=== PATIENT | male | born 1970 | race Caucasian/White ===

== ENCOUNTER 2016-12-26 15:24 | Observation (INO) | payer OTHER ==
[~2016-12-26] VITALS: Ht 167.6 cm; Wt 64.2 kg
[2016-12-26 17:13] LABS: ABNORMAL IP MESSAGE 1; BASOPHILS % 0.7 % (0.0-2.0); EOSINOPHILS # 0.3 10^3/ul (0.0-0.5); EOSINOPHILS % 6.7 % (0.0-7.0); HEMATOCRIT 36.7 % (42.0-52.0); HEMOGLOBIN 12.7 g/dl (14.0-18.0); LYMPHOCYTES # 1.6 10^3/ul (0.8-2.9); LYMPHOCYTES % 37.9 % (15.0-51.0); MEAN CORPUSCULAR HEMOGLOBIN 31.4 pg (29.0-33.0); MEAN CORPUSCULAR HGB CONC 34.6 g/dl (32.0-37.0); MEAN CORPUSCULAR VOLUME 90.8 fl (82.0-101.0); MEAN PLATELET VOLUME 10.1 fl (7.4-10.4); MONOCYTE # 0.3 10^3/ul (0.3-0.9); MONOCYTES % 6.3 % (0.0-11.0); NEUTROPHILS % 47.9 % (39.0-77.0); PLATELET COUNT 57 10^3/UL (140-415); POSITIVE DIFF @See below; RED BLOOD COUNT 4.04 10^6/ul (4.70-6.10); RED CELL DISTRIBUTION WIDTH 14.4 % (11.5-14.5); WHITE BLOOD COUNT 4.3 10^3/ul (4.8-10.8)
[2016-12-26 17:30] LABS: INR 1.3; PARTIAL THROMBOPLASTIN TIME 33.4 Sec (25.0-35.0); PROTIME 16.3 Sec (12.2-14.2); PT RATIO 1.3
[2016-12-26 17:35] LABS: ALANINE AMINOTRANSFERASE 42 IU/L (13-69); ALBUMIN 3.5 g/dl (3.3-4.9); ALBUMIN/GLOBULIN RATIO 0.76; ALKALINE PHOSPHATASE 253 IU/L (42-121); ANION GAP 22 (8-16); ASPARTATE AMINO TRANSFERASE 78 IU/L (15-46); BLOOD UREA NITROGEN 2 mg/dl (7-20); CALCIUM 8.5 mg/dl (8.4-10.2); CARBON DIOXIDE 25 mmol/L (21-31); CHLORIDE 99 mmol/L (97-110); CREATININE 0.46 mg/dl (0.61-1.24); GLUCOSE 365 mg/dl (70-220); POTASSIUM 3.8 mmol/L (3.5-5.1); SODIUM 142 mmol/L (135-144); TOTAL PROTEIN 8.1 g/dl (6.1-8.1)
[2016-12-26 17:36] LABS: ACETAMINOPHEN < 10.0 ug/ml (10.0-30.0); SALICYLATE < 1.0 mg/dl (5.0-30.0)
[2016-12-26 17:45] LABS: TROPONIN-I < 0.012 ng/ml (0.00-0.12)
--- NOTE | 2016-12-26 18:16 | RADRPT ---
PROCEDURE: Noncontrast CT Head. CLINICAL INDICATION: Medical clearance. TECHNIQUE: Noncontrast CT of the head was obtained. The administered radiation dose was CTDI vol = 43.22 mGy, DLP = 855.42 mGy-cm. One or more of the following dose reduction techniques were used: Au tomated exposure control, Adjustment of the mA and/or kV according to patient size, or Use of iterat luciana reconstruction technique. COMPARISON: There are no similar studies submitted for comparison. FINDINGS: There is minimal generalized cerebral volume loss. There is no loss of jones-white differentiation to suggest acute territorial infarction. There is no acute intracranial hemorrhage. There is no mass effect. No midline shift is identified. The orbits are within normal limits. There is minimal bilateral ethmoid sinus mucosal thickening. No destructive osseous lesion is identified. IMPRESSION: 1. No acute intracranial hemorrhage. 2. Minimal generalized cerebral volume loss. Further findings as detailed above. RPTAT: PP .Fernando Yee MD, MD Date Time Electronically viewed and signed by .Fernando Yee MD, on 12/26/2016 18:15 .F/
[2016-12-26 19:09] LABS: ADD UMIC YES; UR ASCORBIC ACID NEGATIVE (NEGATIVE); UR BILIRUBIN (Dip) NEGATIVE (NEGATIVE); UR BLOOD (Dip) 1+ mg/dL (NEGATIVE); UR CLARITY CLEAR (CLEAR); UR COLOR YELLOW (YELLOW); UR GLUCOSE (Dip) 3+ mg/dL (NEGATIVE); UR KETONES (Dip) TRACE mg/dL (NEGATIVE); UR LEUKOCYTE ESTERASE (Dip) TRACE Leu/ul (NEGATIVE); UR NITRITE (Dip) NEGATIVE (NEGATIVE); UR RBC 2 /HPF (0-5); UR SPECIFIC GRAVITY (Dip) 1.033 (1.003-1.030); UR TOTAL PROTEIN (Dip) NEGATIVE (NEGATIVE); UR UROBILINOGEN (Dip) NEGATIVE (NEGATIVE)
[2016-12-26 19:25] LABS: BARBITURATES Negative (NEGATIVE); BENZODIAZEPINES Negative (NEGATIVE); CANNABINOIDS Negative (NEGATIVE); COCAINE Negative (NEGATIVE); OPIATES Negative (NEGATIVE)
--- NOTE | 2016-12-26 19:37 | ERA ---
ER Documentation Chief Complaint Date/Time DATE: 12/26/16 TIME: 19:33 Chief Complaint BIB BROTHER FOR ETOH INTOXICATION AND WEAKNESS HPI This is a 46-year-old male with a history of alcohol abuse who is presenting after being brought in by his brother for both alcohol intoxication and weakness. Over the last 2 weeks, the patient has had generalized weakness. He has been slower to respond to questions and is typical. He seems a little bit more confused than is his baseline. According to his brother, he is also had full days of amnesia, and it is unclear if it is related to alcohol or something else. The patient has not fallen. He has not had any trauma. He has not been lightheaded or dizzy. He just feels weak and fatigued and not quite himself. The patient denies feeling sick. He has had no cold or flulike symptoms. He has had no fever or chills. He does endorse intermittent nausea but no vomiting. He denies any chest pain, but he does state that he has been told he has some sort of heart issue. He does not know what this issue is. Patient denies any abdominal pain. He denies changes to bowel movements urination. The patient does have lower extremity swelling, but this is been long-standing and unchanged. ROS All systems reviewed and are negative except as per history of present illness. Medications Home Meds No Active Prescriptions or Reported Meds Allergies Allergies: Coded Allergies: No Known Allergy (Unverified , 12/26/16) PMhx/Soc Medical and Surgical Hx: pt denies Medical Hx, pt denies Surgical Hx Hx Miscellaneous Medical Probl: Yes (Lower extremity swelling) Hx Alcohol Use: Yes (HEAVILY EVERYDAY) Hx Substance Use: No Hx Tobacco Use: No Smoking Status: Never smoker FmHx Family History: diabetes Physical Exam Vitals Vital Signs Date Time Temp Pulse Resp B/P Pulse Ox O2 Delivery O2 Flow Rate FiO2 12/26/16 15:35 98.1 97 20 109/67 100 Physical Exam Const: NAD Head: Atraumatic Eyes: Mild scleral icterus ENT: Normal External Ears, Nose and Mouth. Neck: Full range of motion..~ No meningismus. Resp: Clear to auscultation bilaterally Cardio: Regular rate and rhythm, no murmurs Abd: Soft, non tender. distended. Normal bowel sounds Skin: No petechiae or rashes Back: No midline or flank tenderness Ext: No cyanosis, or edema Neur: Awake and alert, oriented x 3, slow to respond to questions, normal strength and sensation Psych: slow slurred speech Result Diagram: 12/26/16 1648 12/26/16 1648 Results 24 hrs Laboratory Tests Test 12/26/16 16:48 12/26/16 18:00 12/26/16 19:15 White Blood Count 4.310^3/ul Red Blood Count 4.0410^6/ul Hemoglobin 12.7g/dl Hematocrit 36.7% Mean Corpuscular Volume 90.8fl Mean Corpuscular Hemoglobin 31.4pg Mean Corpuscular Hemoglobin Concent 34.6g/dl Red Cell Distribution Width 14.4% Platelet Count 5710^3/UL Mean Platelet Volume 10.1fl Neutrophils % 47.9% Lymphocytes % 37.9% Monocytes % 6.3% Eosinophils % 6.7% Basophils % 0.7% Nucleated Red Blood Cells % 0.0/100WBC Neutrophils # (Manual) 2.110^3/ul Lymphocytes # 1.610^3/ul Monocytes # 0.310^3/ul Eosinophils # 0.310^3/ul Basophils # 0.010^3/ul Nucleated Red Blood Cells # 0.010^3/ul Prothrombin Time 16.3Sec Prothrombin Time Ratio 1.3 INR International Normalized Ratio 1.30 Activated Partial Thromboplast Time 33.4Sec Sodium Level 142mmol/L Potassium Level 3.8mmol/L Chloride Level 99mmol/L Carbon Dioxide Level 25mmol/L Anion Gap 22 Blood Urea Nitrogen 2mg/dl Creatinine 0.46mg/dl Glucose Level 365mg/dl Calcium Level 8.5mg/dl Total Bilirubin 1.0mg/dl Direct Bilirubin 0.00mg/dl Indirect Bilirubin 1.0mg/dl Aspartate Amino Transf (AST/SGOT) 78IU/L Alanine Aminotransferase (ALT/SGPT) 42IU/L Alkaline Phosphatase 253IU/L Troponin I < 0.012ng/ml Total Protein 8.1g/dl Albumin 3.5g/dl Globulin 4.60g/dl Albumin/Globulin Ratio 0.76 Lipase 63U/L Salicylates Level < 1.0mg/dl Acetaminophen Level < 10.0ug/ml Ethyl Alcohol Level 339.0mg/dl Urine Color YELLOW Urine Clarity CLEAR Urine pH 6.0 Urine Specific [place] 1.033 Urine Ketones TRACEmg/dL Urine Nitrite NEGATIVEmg/dL Urine Bilirubin NEGATIVEmg/dL Urine Urobilinogen NEGATIVEmg/dL Urine Leukocyte Esterase TRACELeu/ul Urine Microscopic RBC 2/HPF Urine Microscopic WBC 3/HPF Urine Hemoglobin 1+mg/dL Urine Glucose 3+mg/dL Urine Total Protein NEGATIVEmg/dl Urine Opiates Screen Negative Urine Barbiturates Negative Urine Amphetamines Screen Negative Urine Benzodiazepines Screen Negative Urine Cocaine Screen Negative Urine Cannabinoids Negative Ammonia 161umol/l B-Type Natriuretic Peptide 52PG/ML Procedures/MDM The patient's presenting with likely sequela of chronic alcoholism. The patient is intoxicated presently with an alcohol level of 400, but I am more concerned about his other blood work, including an ammonia greater than 120 elevated alk phos, elevated transaminases, anemia and thrombocytopenia. The patient does have findings concerning for hepatic encephalopathy. The patient fortunately does not have an elevated bilirubin. The patient's 2+ pitting lower extremity edema is likely associated with his liver dysfunction. He has normal kidney function. His BNP is normal. I do not see evidence of heart failure. The patient has no rales on exam. The patient was concerned of a heart condition. The patient's troponin is negative. An EKG was also performed that did not reveal evidence of ischemia. EKG read by me: Rate/Rhythm: Regular rate and rhythm at a rate of 87 Intervals: Normal TX and QRS, long QTc but less than half RR' Buckner: Normal Impression: No evidence of ischemia or arrhythmia At this time, I feel the patient would benefit from admission to the hospital for a day. He will be given a dose of lactulose to help with encephalopathy. A CT was performed to evaluate for neurologic etiology of his symptoms. It was read by the radiologist as follows: PROCEDURE: Noncontrast CT Head. CLINICAL INDICATION: Medical clearance. FINDINGS: There is minimal generalized cerebral volume loss. There is no loss of jones-white differentiation to suggest acute territorial infarction. There is no acute intracranial hemorrhage. There is no mass effect. No midline shift is identified. The orbits are within normal limits. There is minimal bilateral ethmoid sinus mucosal thickening. No destructive osseous lesion is identified. IMPRESSION: 1. No acute intracranial hemorrhage. 2. Minimal generalized cerebral volume loss. .Fernando Yee MD, Date Time Electronically viewed and signed by .Fernando Yee MD, on 12/26/2016 18:15 Wernicke's encephalopathy was also considered, the patient does have relatively normal coordination and he his memory is slow but intact. He is not confabulatory. The patient is hyperglycemic in the emergency department, but his anion gap is not significant. Additionally, his UA does not show any ketones even though does show glucose. I do not suspect DKA in this patient. The patient be admitted to the hospital for further evaluation and management. Departure Diagnosis: Primary Impression: Alcoholic intoxication Additional Impression: Hepatic encephalopathy Condition: PAT Rivera MD Dec 26, 2016 19:37
[2016-12-26] MEDS ORDERED: ACETAMINOPHEN 325 MG TAB PO PRN ×2 (21:00)
[2016-12-26] MEDS ORDERED: LORAZEPAM 2 MG INJ IV PRN (21:00)
[2016-12-26] MEDS ORDERED: LACTULOSE 30ML CUP PO ONE (21:00)
[2016-12-26] MEDS ORDERED: NACL 0.9% 3 ML SYG IV SCH (21:00)
[2016-12-26] MEDS ORDERED: ONDANSETRON 4 MG INJ IV PRN ×2 (21:00)
[2016-12-26 21:19] VITALS: PULSE 81; TEMP 98.9
[2016-12-26 22:02] VITALS: BP 110/77; RESP 18
[2016-12-26 22:05] VITALS: Ht 167.6 cm; Wt 64.2 kg
[2016-12-26] MEDS: LACTULOSE 30ML CUP PO SCH (23:22)
[2016-12-27] MEDS: MULTIVITAMINS 10 ML, THIAMINE 100 MG, FOLIC ACID 1 MG in SOD CHLORIDE 0.9% 1,000 ML IVPB SCH ×2 (02:12→23:11)
[2016-12-27 02:48] VITALS: BP 107/67; RESP 21
[2016-12-27] MEDS ORDERED: MAGNESIUM SULFATE 2 GM/50 ML 50 ML IVPB ONE ×2 (04:30→14:30)
[2016-12-27] MEDS: LACTULOSE 30ML CUP PO SCH ×4 (05:12→23:16)
[2016-12-27] MEDS: PANTOPRAZOLE (EC) 40 MG TAB PO SCH (05:13)
[2016-12-27 05:46] LABS: ABNORMAL IP MESSAGE 1; EOSINOPHILS # 0.3 10^3/ul (0.0-0.5); EOSINOPHILS % 11.1 % (0.0-7.0); HEMATOCRIT 33.9 % (42.0-52.0); HEMOGLOBIN 12.1 g/dl (14.0-18.0); LYMPHOCYTES # 0.9 10^3/ul (0.8-2.9); MEAN CORPUSCULAR HEMOGLOBIN 32.4 pg (29.0-33.0); MEAN CORPUSCULAR HGB CONC 35.7 g/dl (32.0-37.0); MEAN CORPUSCULAR VOLUME 90.9 fl (82.0-101.0); MEAN PLATELET VOLUME 10.1 fl (7.4-10.4); MONOCYTE # 0.3 10^3/ul (0.3-0.9); MONOCYTES % 9.1 % (0.0-11.0); NEUTROPHILS % 49.5 % (39.0-77.0); PLATELET COUNT 52 10^3/UL (140-415); POSITIVE DIFF @See below; RED BLOOD COUNT 3.73 10^6/ul (4.70-6.10); RED CELL DISTRIBUTION WIDTH 14.2 % (11.5-14.5)
[2016-12-27 06:38] LABS: ALBUMIN 2.8 g/dl (3.3-4.9); ALBUMIN/GLOBULIN RATIO 0.66; BILIRUBIN,INDIRECT 0.9 mg/dl (0-1.1); BILIRUBIN,TOTAL 0.9 mg/dl (0.2-1.3); CALCIUM 7.8 mg/dl (8.4-10.2); CREATININE 0.34 mg/dl (0.61-1.24); MAGNESIUM 1.6 mg/dl (1.7-2.5); PHOSPHORUS 3.7 mg/dl (2.5-4.9); POTASSIUM 3.3 mmol/L (3.5-5.1)
[2016-12-27 06:58] LABS: THYROID STIMULATING HORMONE 1.46 MIU/L (0.465-4.680)
[2016-12-27 08:00] VITALS: BP 110/70; RESP 20
--- NOTE | 2016-12-27 11:45 | RADRPT ---
PROCEDURE: US Abdomen (right upper quadrant). CLINICAL INDICATION: Elevated liver function tests. Ethanol abuse. TECHNIQUE: Multiple real-time longitudinal and transverse images of the right upper quadrant of th e abdomen were acquired utilizing a curved array transducer. Images were reviewed on a high-resoluti on PACS workstation. COMPARISON: None FINDINGS: The liver is diffusely heterogeneous and has a nodular surface consistent with cirrhosis. There is no focal hepatic lesion. Gallstones are present in the gallbladder. There is no gallbladder wall thickening or fluid around the gallbladder. The bile ducts are normal with the common bile duct measuring 5.1 mm in diameter. The pancreas may be edematous. There is no pancreatic mass demonstrated No free fluid is present. The right kidney measures 11.8 cm. There is normal echogenicity of the right kidney. There is no perinephric fluid collection. No hydronephrosis, mass, or calculus is seen. IMPRESSION: 1. Cirrhotic liver. 2. Gallstones in the gallbladder. No evidence of cholecystitis. 3. Possible pancreatitis. 4. Otherwise unremarkable study. RPTAT: QQ .Luke Vazquez MD, MD Date Time Electronically viewed and signed by .Luke Vazquez MD, on 12/27/2016 11:45 .R/
[2016-12-27 14:00] VITALS: BP 114/72; RESP 20
[2016-12-27] MEDS ORDERED: MAGNESIUM SULFATE 4 GM/100 ML 100 ML IVPB ONE (14:00)
[2016-12-27] MEDS ORDERED: POTASSIUM CHLORIDE (SR) 20 MEQ TAB PO STA (14:00)
--- NOTE | 2016-12-27 14:27 | HP ---
Date/Time of Note Date/Time of Note DATE: 12/27/16 TIME: 14:04 Assessment/Plan VTE Prophylaxis VTE Prophylaxis Intervention: SCD's Lines/Catheters IV Catheter Type (from [facility], [place]): Saline Lock Urinary Cath still in place: No Assessment/Plan Assessment/Plan 46-year-old male with: 1. Alcoholic cirrhosis, cirrhotic liver confirmed on ultrasound of the liver. Patient also with mild bone marrow suppression with thrombocytopenia and mild leukopenia. No signs of acute bleeding. 2. Hepatic encephalopathy can vary to cirrhosis: Continue lactulose, ammonia coming down. Mental status improving however seems to be in mild withdrawal 3. Alcohol abuse, alcoholism: He is willing to quit, so services did provide resources. He is having mild symptoms of withdrawal already, he will be started on Librium 25 mg p.o. 3 times daily along with Ativan as needed. Continue banana bag and replete magnesium 4. Thrombocytopenia with signs of bone marrow suppression likely secondary to liver disease and cirrhosis. Stable Prophylaxis: SCDs for DVT prophylaxis, Protonix for GI prophylaxis Disposition: Continue current care, currently on observation but if he is not discharged tomorrow he will be changed to inpatient. HPI/ROS Admit Date/Time Admit Date/Time Dec 26, 2016 at 21:40 Hx of Present Illness Chief complaint: Unsteady gait, altered mental status, alcohol abuse History of presenting illness: 46-year-old male, alcoholic, presented emergency department still intoxicated, reported increased episodes of disorientation and encephalopathy. Patient was found to have elevated ammonia level of 161 consistent with hepatic encephalopathy. Patient reports that he drinks at least 6 beers a day, he has been doing this for the past 17 years. He does admit that he is an alcoholic, he was admitted in a hospital in [facility] 2 months ago when he was on vacation, he was told then that he had alcoholic liver disease and signs of cirrhosis. He reports that he was given multiple medication including the liquid he had to drink. He took it for a few days until he ran out then he stopped taking it. He is found to have signs of cirrhosis including thrombocytopenia, slight coagulopathic, hepatic encephalopathy with ammonia level in the 160s. Ammonia is better today while on lactulose. He is also having signs of withdrawal with some diaphoresis, tremors start settling in. His mental status remains clear. He denies any fevers, chills, abdominal pain, constipation, diarrhea. He has been admitted for alcohol intoxication and hepatic encephalopathy. ROS Constitutional: fatigue, weight change (8 pound weight loss) Eyes: no complaints ENT: no complaints Respiratory: no complaints Cardiovascular: no complaints Genitourinary: no complaints Musculoskeletal: no complaints Neurologic: other (Generalized weakness) Endocrine: no complaints Lymphatic: no complaints Psychological: no complaints PMH/Family/Social Past Medical History Alcoholism/alcohol abuse Alcoholic liver disease, neurosis Hepatic encephalopathy Past Surgical History Past Surgical Hx: no surgical history Social History Alcohol Use: heavy (At least 6 beers a day past 17 years) Smoking Status: Never smoker Drug Use: none Exam/Review of Systems Vital Signs Vitals Vital Signs Date Time Temp Pulse Resp B/P Pulse Ox O2 Delivery O2 Flow Rate FiO2 12/27/16 08:00 97.8 100 20 110/70 96 12/26/16 21:19 Room Air Intake and Output 12/26/16 12/26/16 12/27/16 15:00 23:00 07:00 Intake Total 375 ml Balance 375 ml Exam Constitutional: alert, oriented, other (Tremulous, diaphoretic), well developed Respiratory: clear to auscultation, normal air movement Cardiovascular: nl pulses, regular rate and rhythm Gastrointestinal: nl liver, spleen, non-tender, soft Musculoskeletal: nl extremities to inspection Extremities: normal pulses, other (No edema, clubbing or cyanosis) 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, nl mental status, nl speech, nl strength, other (Tremulous) Labs Result Diagram: 12/27/1652112/27/16521 Medications Medications Current Medications Ondansetron HCl (Zofran Inj) 4 mg Q6H PRN IV NAUSEA AND/OR VOMITING; Start at 21:00 Acetaminophen (Tylenol Tab) 650 mg Q6H PRN PO PAIN LEVEL 1-3 OR FEVER; Start at 21:00 Pantoprazole 40 mg 40 mg DAILY@06 PO Last administered on 12/27/16 05:13; Admin Dose 40 MG; Start 12/27/16 at 06:00 Multivitamins/ Thiamine HCl/ Folic Acid/Sodium Chloride (Mvi Adult/ Vitamin B1/ Folic Acid/NS) 1,011.2 ml @ 125 mls/ hr DAILY@23 IVPB Last administered on 02:12; Admin Dose 125 MLS/HR; Start 12/26/16 at 23:00 Lactulose (Enulose) 20 gm Q6 PO Last administered on 12/27/16 12:12; Admin Dose 20 GM; Start 12/27/16 at 00:00 Lorazepam 1 mg 1 mg Q4H PRN IV CONTROL WITHDRAWAL SYMPTOMS; Start 12/26/16 at 21:00 Magnesium Sulfate (Magnesium Sulfate 4 Gm/100 ml) 100 ml @ 25 mls/hr ONCE ONCE IVPB ; Start 12/27/16 at 14:00; Stop 12/27/16 at 17:59; Status UNV Procedures Procedures PROCEDURE: Noncontrast CT Head. CLINICAL INDICATION: Medical clearance. TECHNIQUE: Noncontrast CT of the head was obtained. The administered radiation dose was CTDI vol = 43.22 mGy, DLP = 855.42 mGy-cm. One or more of the following dose reduction techniques were used: Automated exposure control, Adjustment of the mA and/or kV according to patient size, or Use of iterative reconstruction technique. COMPARISON: There are no similar studies submitted for comparison. FINDINGS: There is minimal generalized cerebral volume loss. There is no loss of jones-white differentiation to suggest acute territorial infarction. There is no acute intracranial hemorrhage. There is no mass effect. No midline shift is identified. The orbits are within normal limits. There is minimal bilateral ethmoid sinus mucosal thickening. No destructive osseous lesion is identified. IMPRESSION: 1. No acute intracranial hemorrhage. 2. Minimal generalized cerebral volume loss. Further findings as detailed above. RPTAT: PP .Fernando Yee MD, MD Date Time Electronically viewed and signed by .Fernando Yee MD, on 12/26/2016 18:15 PROCEDURE: US Abdomen (right upper quadrant). CLINICAL INDICATION: Elevated liver function tests. Ethanol abuse. TECHNIQUE: Multiple real-time longitudinal and transverse images of the right upper quadrant of the abdomen were acquired utilizing a curved array transducer. Images were reviewed on a high-resolution PACS workstation. COMPARISON: None FINDINGS: The liver is diffusely heterogeneous and has a nodular surface consistent with cirrhosis. There is no focal hepatic lesion. Gallstones are present in the gallbladder. There is no gallbladder wall thickening or fluid around the gallbladder. The bile ducts are normal with the common bile duct measuring 5.1 mm in diameter. The pancreas may be edematous. There is no pancreatic mass demonstrated No free fluid is present. The right kidney measures 11.8 cm. There is normal echogenicity of the right kidney. There is no perinephric fluid collection. No hydronephrosis, mass, or calculus is seen. IMPRESSION: 1. Cirrhotic liver. 2. Gallstones in the gallbladder. No evidence of cholecystitis. 3. Possible pancreatitis. 4. Otherwise unremarkable study. RPTAT: QQ .Luke Vazquez MD, MD Date Time Electronically viewed and signed by .Luke Vazquez MD, on 12/27/2016 11:45 GUSTAVO BROWN Dec 27, 2016 14:27
[2016-12-27] MEDS: CHLORDIAZEPOXIDE 25 MG CAP PO SCH ×2 (15:35→21:09)
[2016-12-27 20:59] VITALS: BP 108/69; RESP 20
[2016-12-27 21:03] VITALS: BP 108/69; RESP 20
[2016-12-28 02:55] VITALS: BP 105/64; RESP 18
[2016-12-28] MEDS: LACTULOSE 30ML CUP PO SCH ×3 (05:54→17:58)
[2016-12-28] MEDS: PANTOPRAZOLE (EC) 40 MG TAB PO SCH (05:54)
[2016-12-28 06:32] LABS: ABNORMAL IP MESSAGE 1; BASOPHILS % 0.5 % (0.0-2.0); EOSINOPHILS # 0.5 10^3/ul (0.0-0.5); HEMATOCRIT 36.5 % (42.0-52.0); HEMOGLOBIN 12.7 g/dl (14.0-18.0); LYMPHOCYTES # 0.7 10^3/ul (0.8-2.9); MEAN CORPUSCULAR HGB CONC 34.8 g/dl (32.0-37.0); MEAN CORPUSCULAR VOLUME 91.9 fl (82.0-101.0); MEAN PLATELET VOLUME 11.4 fl (7.4-10.4); MONOCYTE # 0.4 10^3/ul (0.3-0.9); MONOCYTES % 10.2 % (0.0-11.0); PLATELET COUNT 50 10^3/UL (140-415); POSITIVE DIFF @See below; RED BLOOD COUNT 3.97 10^6/ul (4.70-6.10); RED CELL DISTRIBUTION WIDTH 14.2 % (11.5-14.5); WHITE BLOOD COUNT 3.6 10^3/ul (4.8-10.8)
[2016-12-28 06:47] LABS: MAGNESIUM 1.8 mg/dl (1.7-2.5); PHOSPHORUS 3.2 mg/dl (2.5-4.9)
[2016-12-28 07:15] VITALS: BP 109/72; RESP 16
[2016-12-28 07:21] LABS: ALBUMIN 2.7 g/dl (3.3-4.9); ALBUMIN/GLOBULIN RATIO 0.61; BILIRUBIN,INDIRECT 1.7 mg/dl (0-1.1); BILIRUBIN,TOTAL 1.7 mg/dl (0.2-1.3); CALCIUM 8.3 mg/dl (8.4-10.2); CREATININE 0.35 mg/dl (0.61-1.24); POTASSIUM 3.1 mmol/L (3.5-5.1); TOTAL PROTEIN 7.1 g/dl (6.1-8.1)
[2016-12-28] MEDS: CHLORDIAZEPOXIDE 25 MG CAP PO SCH ×2 (09:57→13:09)
[2016-12-28] MEDS ORDERED: POTASSIUM CHLORIDE (SR) 20 MEQ TAB PO STA (11:08)
[2016-12-28] MEDS ORDERED: FOLIC ACID 1 MG TAB PO SCH (11:30)
[2016-12-28] MEDS ORDERED: THIAMINE 100 MG TAB PO SCH (11:30)
[2016-12-28] MEDS ORDERED: MAGNESIUM SULFATE 2 GM/50 ML 50 ML IVPB ONE (11:30)
[2016-12-28] MEDS ORDERED: MULTIVITAMINS THERAPEUTIC TAB PO SCH (11:30)
--- NOTE | 2016-12-28 13:56 | PN ---
Date/Time of Note Date/Time of Note DATE: 12/28/16 TIME: 13:50 Assessment/Plan VTE Prophylaxis VTE Prophylaxis Intervention: ambulation, SCD's Lines/Catheters [facility] Saline Lock Urinary Cath still in place: No Assessment/Plan Assessment/Plan 46-year-old male with: 1. Alcoholic cirrhosis, cirrhotic liver confirmed on ultrasound of the liver. Patient also with mild bone marrow suppression with thrombocytopenia and mild leukopenia. No signs of acute bleeding. 2. Hepatic encephalopathy can vary to cirrhosis: Continue lactulose, ammonia level pending today Mental status improving back to baseline, mild withdrawal controlled 3. Alcohol abuse, alcoholism: He is willing to quit, so services did provide resources. On Librium 25 mg p.o. 3 times daily and controlled. D/C banana bag, start on MVI/folate/thiamine p.o. daily. Replete potassium and magnesium today. 4. Thrombocytopenia with signs of bone marrow suppression likely secondary to liver disease and cirrhosis. Stable Prophylaxis: SCDs for DVT prophylaxis, Protonix for GI prophylaxis Disposition: Follow-up on repeat potassium level and ammonia level for discharge planning today. Subjective 24 Hr Interval Summary Free Text/Dictation Patient doing well today, no signs of withdrawal, has been on Librium. Mental status stable and clear, no tremors. Awaiting p.o. well, changing only medication to oral Potassium and magnesium being repleted, ammonia level and repeat potassium level pending this afternoon, if stable patient will be discharged home today. Exam/Review of Systems Vital Signs Vitals Vital Signs Date Time Temp Pulse Resp B/P Pulse Ox O2 Delivery O2 Flow Rate FiO2 12/28/16 07:15 98.5 64 16 109/72 99 12/26/16 21:19 Room Air Intake and Output 12/27/16 12/27/16 12/28/16 14:59 22:59 06:59 Intake Total 50 ml 1356.2 ml 1230 ml Balance 50 ml 1356.2 ml 1230 ml Exam Constitutional: alert, oriented, well developed Respiratory: clear to auscultation, normal air movement Cardiovascular: nl pulses, regular rate and rhythm Gastrointestinal: non-tender, soft Musculoskeletal: nl extremities to inspection, nl gait and stance Extremities: normal pulses 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, nl mental status, nl speech, nl strength Results Result Diagram: 12/28/16 0532 12/28/16 0532 Results 24 hrs Laboratory Tests Test 12/28/16 05:32 White Blood Count 3.6 L Red Blood Count 3.97 L Hemoglobin 12.7 L Hematocrit 36.5 L Mean Corpuscular Volume 91.9 Mean Corpuscular Hemoglobin 32.0 Mean Corpuscular Hemoglobin Concent 34.8 Red Cell Distribution Width 14.2 Platelet Count 50 L Mean Platelet Volume 11.4 H Neutrophils % 56.0 Lymphocytes % 19.0 Monocytes % 10.2 Eosinophils % 14.0 H Basophils % 0.5 Nucleated Red Blood Cells % 0.0 Neutrophils # (Manual) 2.0 Lymphocytes # 0.7 L Monocytes # 0.4 Eosinophils # 0.5 Basophils # 0.0 Nucleated Red Blood Cells # 0.0 Sodium Level 139 Potassium Level 3.1 L Chloride Level 103 Carbon Dioxide Level 24 Anion Gap 15 Blood Urea Nitrogen 4 L Creatinine 0.35 L Glucose Level 206 Calcium Level 8.3 L Phosphorus Level 3.2 Magnesium Level 1.8 Total Bilirubin 1.7 H Direct Bilirubin 0.00 Indirect Bilirubin 1.7 H Aspartate Amino Transf (AST/SGOT) 63 H Alanine Aminotransferase (ALT/SGPT) 35 Alkaline Phosphatase 202 H Total Protein 7.1 Albumin 2.7 L Globulin 4.40 H Albumin/Globulin Ratio 0.61 Medications Medications Current Medications Ondansetron HCl (Zofran Inj) 4 mg Q6H PRN IV NAUSEA AND/OR VOMITING; Start at 21:00 Acetaminophen (Tylenol Tab) 650 mg Q6H PRN PO PAIN LEVEL 1-3 OR FEVER; Start at 21:00 Pantoprazole (Protonix Tab) 40 mg DAILY@06 PO Last administered on 12/28/16 05 :54; Admin Dose 40 MG; Start 12/27/16 at 06:00 Lactulose (Enulose) 20 gm Q6 PO Last administered on 12/28/16 11:49; Admin Dose 20 GM; Start 12/27/16 at 00:00 Lorazepam (Ativan) 1 mg Q4H PRN IV CONTROL WITHDRAWAL SYMPTOMS Last administered on 12/27/16 23:20; Admin Dose 1 MG; Start 12/26/16 at 21:00 Chlordiazepoxide (Librium) 25 mg TID PO Last administered on 12/28/16 13:09; Admin Dose 25 MG; Start 12/27/16 at 14:30 Thiamine HCl (Vitamin B1) 100 mg DAILY PO Last administered on 12/28/16 11:49 ; Admin Dose 100 MG; Start 12/28/16 at 11:30 Folic Acid (Folic Acid) 1 mg DAILY PO Last administered on 12/28/16 11:49; Admin Dose 1 MG; Start 12/28/16 at 11:30 Multivitamins Therapeutic (Theragran) 1 tab DAILY PO Last administered on 11:49; Admin Dose 1 TAB; Start 12/28/16 at 11:30 GUSTAVO BROWN Dec 28, 2016 13:56
[2016-12-28 14:06] VITALS: BP 102/72; RESP 18
--- NOTE | 2016-12-28 17:02 | PDOCDIS ---
Discharge Instructions CONDITION Patient Condition: Stable HOME CARE INSTRUCTIONS: Special Diet: REGULAR DIET ACTIVITY: Activity Restrictions: Slowly Increase Activity FOLLOW UP/APPOINTMENTS Follow-up Plan Follow up with PCP within 1 week Follow up with outpatient substance abuse resources OTHER ORDERS: Other Orders: Need to stop alcohol consumption SCHOOL/WORK RELEASE May return to School/Work on: Jan 04, 2017 GUSTAVO BROWN Dec 28, 2016 17:02
[2016-12-28] MEDS ORDERED: MULTI PO (17:05)
[2016-12-28] MEDS ORDERED: LACT20SO12 PO (17:05)
[2016-12-28] MEDS ORDERED: Thiamine PO (17:05)
[2016-12-28] MEDS ORDERED: CHLO25CA9 PO (17:05)
[2016-12-28] MEDS ORDERED: FOLI-49 PO (17:05)
[2016-12-28] MEDS ORDERED: PANT40TA4 PO (17:05)
== END 2016-12-28 19:30 | disposition home or self-care (01) ==
LOC: E/R 15:24 → PP2 20:41 → UNDOADMOB 21:40 → PP2 21:40
PROVIDERS: ADMIT Internal Medicine; ATTEND Internal Medicine
DX: F10.129 Alcohol abuse with intoxication, unspecified (principal); K70.30 Alcoholic cirrhosis of liver without ascites; K70.40 Alcoholic hepatic failure without coma; Y90.8 Blood alcohol level of 240 mg/100 ml or more; D69.6 Thrombocytopenia, unspecified
CPT/HCPCS: 36415; 70450; 76705; 80053; 80061; 80306; 80307; 81001; 82140; 83690; 83735; 83880; 84100; 84132; 84439; 84443; 84484; 85025; 85610; 85730; 93005; 99285; G0378; J2060; J3411; J3475; J7030

== ENCOUNTER 2017-11-08 17:17 | Emergency (ER) | END 2017-11-09 00:43 | disposition home or self-care (01) ==

== ENCOUNTER 2018-01-28 07:41 | Emergency (ER) | END 2018-01-28 10:30 | disposition home or self-care (01) ==